=== PATIENT | male | born 1965 | race Caucasian/White ===

== ENCOUNTER 2019-04-03 15:38 | Emergency (ER) | payer OTHER ==
[~2019-04-03] VITALS: Ht 180.3 cm; Wt 85.7 kg
[2019-04-03] MEDS ORDERED: PREZCOBIX 8001 EACH PO (15:58)
[2019-04-03] MEDS ORDERED: DISCOVISC DISP S1 ML IO (15:58)
[2019-04-03] MEDS ORDERED: ADVAIR 100-501 EACH IH (15:59)
[2019-04-03] MEDS ORDERED: SEPTRA DS (16:00)
== END 2019-04-03 19:55 | disposition home or self-care (01) ==
LOC: ER 15:38
DX: N39.0 Urinary tract infection, site not specified (principal); B96.20 Unspecified Escherichia coli [E. coli] as the cause of diseases classified elsewhere; D29.1 Benign neoplasm of prostate